=== PATIENT | male | born 1995 | race Caucasian/White ===

== ENCOUNTER 2017-09-19 11:36 | Outpatient (CLI) | payer SELFPAY ==
[~2017-09-19] VITALS: Ht 180.3 cm; Wt 75.9 kg
[2017-09-19 12:42] LABS: PROTHROMBIN TIME 11.4 SECONDS (9.7-12.8)
[2017-09-19 12:48] LABS: CALCIUM 9.8 mg/dL (8.4-10.2); CREATININE, serum 0.91 mg/dL (0.66-1.25); POTASSIUM 4.3 mmol/L (3.4-5.0)
[2017-09-19] MEDS ORDERED: XARELTO20 MG PO (14:21)
[2017-09-19 14:30] VITALS: BP 110/77; PULSE 83; TEMP 97.8
== END 2017-09-19 15:28 | disposition home or self-care (01) ==
LOC: EUO 11:36
PROVIDERS: Internal Medicine Cardiovascular Disease
DX: I48.91 Unspecified atrial fibrillation (principal)
CPT/HCPCS: J2704